=== PATIENT | male | born 1955 | race Caucasian/White ===

== ENCOUNTER → 2016-06-10 | Outpatient (CLI) | payer OTHER ==
--- NOTE | 2016-06-10 13:40 | MR ---
MRI of the Brain (Without Contrast) History: Seizures. Technique: T1-weighted images were acquired axially and sagittally from the foramen magnum to the ve rtex. Axial fast inversion recovery, fast T2-weighted, GRE and diffusion-weighted axial images were obtained without contrast. Findings: The temporal lobes are symmetric and normal. There is no evidence for mesial temporal scler osis. There is no evidence for subarachnoid blood on the FLAIR imaging sequence. There is no evidence of superficial siderosis on the T1 or gradient imaging sequence. The ventricles, cisterns, and sulci are normal with mild age-appropriate cerebral atrophy. There is no hydrocephalus, midline shift, her niation, or epidural/subdural hematomas. No intracranial hemorrhage or masses. A single punctate isov olumic T2-weighted focus in the deep white matter of the right mid parietal lobe is nonspecific and p ossibly a microvascular ischemic change of in nature often seen in patients of this age or a sequela of previous head trauma. Diffusion-weighted sequence demonstrates no acute infarct. Cerebellar tonsil s are in normal position. Pituitary gland is normal in size. Normal signal flow-void in the superior sagittal sinus, basilar artery, and bilateral internal carotid arteries indicating patency. 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 The other paranasal sinuses and mastoid air cells are clear, e xcept for subtotal opacification of the posterior right ethmoid sinuses. Impression: 1. No source for seizure identified. No evidence for subarachnoid hemorrhage. 2. Limited right posterior ethmoid sinus disease.
--- NOTE | 2016-06-10 17:23 | MR ---
MRI Angiogram Of The [place] [facility] [place] History: Evaluate for aneurysm. R29.818 Neurological changes strongly suggesting intracerebral aneurysm. Seizures. Technique: 3-D time of flight MR angiography performed in the direct axial acquisition plane. Images are transferred to the independent workstation where multiplanar MIP and 3 dimensional reconstruction s are obtained and reviewed by me. Comparison: MRI brain performed earlier Findings: Both distal vertebral arteries, the basilar artery, basilar tip, posterior cerebral arterie s and superior cerebellar arteries are normal. The left posterior inferior cerebellar artery and righ t anterior inferior cerebellar arteries are normal. Both distal internal carotid arteries are normal. The ophthalmic artery origins are normal. The M1, M2 and middle cerebral trifurcations are normal. T he A1, A2 and anterior cerebral arteries are normal. There is a normal anterior communicating artery. Neither posterior communicating artery is identified. On the exceptional needs teacher view normal flow is identified i n the superior sagittal sinus and straight sinus. Impression: Normal exam. No aneurysm identified.
== END ==
LOC: FIMAGING 12:10
PROVIDERS: ATTEND Internal Medicine
DX: R56.9 Unspecified convulsions (principal)

== ENCOUNTER → 2016-08-06 | Outpatient (CLI) | payer OTHER | LOC: FIMAGING 08:14 | PROVIDERS: ATTEND Neurological Surgery | DX: S22.080A Wedge compression fracture of T11-T12 vertebra, initial encounter for closed fracture (principal); M47.896 Other spondylosis, lumbar region; M41.85 Other forms of scoliosis, thoracolumbar region ==